=== PATIENT | male | born 1950 | race Caucasian/White ===

== ENCOUNTER 2016-10-23 11:18 | Emergency (ER) | payer BC, OTHER ==
[~2016-10-23] VITALS: Ht 185.4 cm; Wt 92.0 kg
[~2016-10-23 11:18] MED LIST: LORT5TAB PO; MELO15TA2 PO; METH500T3 PO; PRED5PAK PO; TYLE500T PO
[2016-10-23 11:30] VITALS: BP 121/67; PULSE 59; RESP 16; TEMP 97.5; O2SAT 97
--- NOTE | 2016-10-23 11:37 | PD ---
HPI Chief Complaint: Eye Problems/Injury Time Seen by Provider: 11:35 Travel History International Travel<30 days: No Contact w/Intl Traveler<30days: No Traveled to known affect area: No History of Present Illness HPI 66-year-old male with history of DM presents to the ED for evaluation of three day history left eye redness and swelling. The patient endorses increased tearing and discharge. The patient denies headaches, fever, chills, vision changes, pain with ocular movements, foreign body sensation or trauma to the affected eye. He's been treating with warm compresses a few times a day with no improvement. He is visiting from [place], plans to return home in a few days. [facility] Social History Alcohol Use: Yes (3-4 DAILY) Tobacco Use: Yes (1 PPD) Substance Use: No Allergies-Medications (Allergen,Severity, Reaction): Coded Allergies: No Known Allergies (Unverified , 10/23/16) Reported Meds & Prescriptions Reported Meds & Active Scripts Active Lortab 5/500 (Acetaminophen/Hydrocodone Bitart) 5 Mg/500 Mg Tab 1 Tab PO Q6HPRN Robaxin (Methocarbamol) 500 Mg Tab 500 Mg PO QID Mobic (Meloxicam) 15 Mg Tab 15 Mg PO DAILY Reported Tylenol (Acetaminophen) 500 Mg Tab 1,000 Mg PO ONCE Prednisone 5 Mg Paul 5 Mg PO Review of Systems Except as stated in HPI: all other systems reviewed are Neg Physical Exam Narrative GENERAL: Well-nourished, well-developed nontoxic appearing white male in no acute distress.. SKIN: Focused skin assessment warm/dry. HEAD: Normocephalic. EYES: No scleral icterus. No injection. Left eye with mildly increased tearing. PERRLA. EOM intact and painless. There is a subcentimeter external hordeolum of the upper eyelid of the left eye.There is a zone of inflammation surrounding the hordeolum. No warmth, discharge, cellulitic streaking. FUNDISCOPIC EXAM: The left fundiscopic exam appeared within normal limits without papilledema, A- V nicking or blood associated with the optic disc. NECK: Supple, trachea midline. No JVD or lymphadenopathy. CARDIOVASCULAR: Regular rate and rhythm without murmurs, gallops, or rubs. RESPIRATORY: Breath sounds equal bilaterally. No accessory muscle use. GASTROINTESTINAL: Abdomen soft, non-tender, nondistended. MUSCULOSKELETAL: No cyanosis, or edema. Patient is noted to walk with a normal gait. BACK: Nontender without obvious deformity. No CVA tenderness. Data Data Last Documented VS Vital Signs Date Time Temp Pulse Resp B/P Pulse Ox O2 Delivery O2 Flow Rate FiO2 10/23/16 11:40 16 10/23/16 11:30 97.5 59 121/67 97 MDM Medical Decision Making Medical Screen Exam Complete: Yes Emergency Medical Condition: Yes Differential Diagnosis Hordeolum versus chalazion versus conjunctivitis versus cellulitis versus other Narrative Course 66-year-old male with history of DM presents to the ED for evaluation of three day history left eye redness and swelling. The patient endorses increased tearing and discharge. The patient denies headaches, fever, chills, vision changes, pain with ocular movements, foreign body sensation or trauma to the affected eye. Vitals reviewed. Physical exam reveals a nontoxic appearing white male in no acute distress. Left eye with mildly increased tearing. PERRLA. EOM intact and painless. There is a subcentimeter external hordeolum of the upper eyelid of the left eye.There is a zone of inflammation surrounding the hordeolum. No warmth, discharge, cellulitic streaking. This is external hordeolum. Patient was instructed to apply warm compresses 15 minutes at a time 4-5 times daily, follow up with the personal care service provider if symptoms do not resolve within a week. He indicated understanding of the instructions and is agreeable to the care plan. The patient is stable and discharged home. Diagnosis Primary Impression: Hordeolum externum of left upper eyelid Referrals: April Contreras MD Patient Instructions: General Instructions, [facility] (ED) Additional Instructions: Rest, hydrate. Warm compresses 15 minutes at a time 4-5 times a day. Take OTC antiinflammatories (Ibuprofen, Aleve) as directed on the label to reduce pain and inflammation. If the area does not reduce in size or symptoms do not resolve within 1 week follow-up with the personal care service provider as discussed. Return to the ED for any urgent or emergent medical condition. Disposition: 01 DISCHARGE HOME Condition: Stable Maegan Meza Oct 23, 2016 11:37
[2016-10-23] MEDS ORDERED: CANA100T PO (11:48)
== END 2016-10-23 11:52 | disposition home or self-care (01) ==
LOC: PHEFT 11:18
DX: H00.014 Hordeolum externum left upper eyelid (principal); F17.200 Nicotine dependence, unspecified, uncomplicated
CPT/HCPCS: 99282